=== PATIENT | female | born 1980 | race Caucasian/White ===

== ENCOUNTER 2018-06-21 14:54 | Emergency (ER) | payer MEDICAID ==
[~2018-06-21] VITALS: Ht 177.8 cm; Wt 54.5 kg
[2018-06-21 14:57] VITALS: Ht 177.8 cm; Wt 54.5 kg
[2018-06-21] MEDS ORDERED: LIBRIUM25 MG PO (14:59)
[2018-06-21 16:17] LABS: APPEARANCE CLEAR (CLEAR); BACTERIA FEW /hpf (NONE SEEN); BILIRUBIN NEGATIVE (NEGATIVE); COLOR YELLOW (YELLOW); EPITHELIAL CELLS NSEEN /hpf (0-5); GLUCOSE NEGATIVE (NEGATIVE); KETONE NEGATIVE (NEGATIVE); NITRITE POSITIVE (NEGATIVE); PROTEIN NEGATIVE (NEGATIVE); RED CELLS - URINE NONE SEEN /hpf (0-5); SPECIFIC GRAVITY 1.005 (1.005-1.020); UROBILINOGEN NORMAL (NORMAL); WHITE CELLS - URINE RARE /hpf (0-5)
[2018-06-21] MEDS ORDERED: VOLTAREN75 MG PO (18:21)
[2018-06-21] MEDS ORDERED: MACROBID100 MG PO (18:21)
[2018-06-21] MEDS ORDERED: BACLOFEN20 M1 PO (18:21)
[2018-06-21 18:54] VITALS: BP 138/80
== END 2018-06-21 18:55 | disposition home or self-care (01) ==
LOC: D.ER 14:54
PROVIDERS: Family Medicine
DX: S16.1XXA Strain of muscle, fascia and tendon at neck level, initial encounter (principal); W18.2XXA Fall in (into) shower or empty bathtub, initial encounter; Y93.E1 Activity, personal bathing and showering; Y92.89 Other specified places as the place of occurrence of the external cause; N39.0 Urinary tract infection, site not specified; M54.5 Low back pain; M54.2 Cervicalgia; F17.200 Nicotine dependence, unspecified, uncomplicated